=== PATIENT | female | born 1970 | race Caucasian/White ===

== ENCOUNTER 2020-06-27 17:51 | Emergency (ER) | payer BC, OTHER ==
[~2020-06-27 17:51] MED LIST: Iopamidol-370 76% 500 ML 1 ML ONE
[2020-06-27 18:43] LABS: #Lymphocytes 1.1 thou/uL (1.20-3.40); #Monocytes 0.2 thou/uL (0.11-0.59); #Neutrophils 3.7 thou/uL (1.40-6.50); %Basophils 0.3 % (0.0-1.0); %Eosinophils 0.7 % (0.0-10.0); %Lymphocytes 21.5 % (21.0-51.0); %Monocytes 4.5 % (0.0-10.0); Hemoglobin 13.2 g/dL (12.0-16.0); Mean Corpuscular HGB CONC 34.3 g/dL (32.0-36.0); Mean Corpuscular Hemoglobin 30.4 pg (27.0-31.0); Mean Corpuscular Volume 88.9 fL (78.0-98.0); Mean Platelet Volume 8.3 fL (7.4-10.4); Platelet Count 158 thou/uL (130-400); RBC Distribution Width 11.6 % (11.5-14.5); Red Blood Cell (RBC) Count 4.34 mill/uL (4.20-5.40); White Blood Cell (WBC) Count 5.1 thou/uL (4.8-10.8)
--- NOTE | 2020-06-27 19:03 | RAD ---
XR Chest 1 View Portable History: Chest pain Comparison: None. Findings: Abnormal nodular density projects over the right lower lobe. Remainder the lungs are relati vely clear. Lung hyperinflation. No confluent airspace consolidation, pneumothorax or effusion. No acute osseous abnormality. Impression: Abnormal nodular density projecting over the right lower lobe for which nonemergent evalu ation with chest CT recommended.
[2020-06-27 19:07] LABS: ALT (SGPT) 25 U/L (8-55); AST (SGOT) 19 U/L (5-34); Albumin 3.9 g/dL (3.5-5.0); Alkaline Phosphatase 85 U/L (40-110); Anion Gap 13 mmol/L (10-20); BUN (Urea Nitrogen) 11 mg/dL (9.8-20.1); Bilirubin, Total 0.7 mg/dL (0.2-1.2); Calc. Creatinine Clearance 0 mL/min (70-130); Calcium 8.5 mg/dL (7.8-10.44); Carbon Dioxide 24 mmol/L (22-29); Chloride 105 mmol/L (98-107); Estimated GFR-MDRD Greater than 90; Globulin 2.7 g/dL (2.4-3.5); Glucose 99 mg/dL (70-105); Potassium 3.6 mmol/L (3.5-5.1); Protein, Total 6.6 g/dL (6.0-8.3); Sodium 138 mmol/L (136-145)
[2020-06-27] MEDS ORDERED: Ondansetron ODT 4 MG TAB ONE (19:16)
[2020-06-27] MEDS ORDERED: Ondansetron PF 4 MG/2 ML Vial ONE (20:32)
--- NOTE | 2020-06-27 21:05 | CT ---
CTA Angio Chest W WO Con History: Covid pneumonia Comparison: Radiograph same day Findings: CT angiogram of the chest performed after the intravenous administration of contrast. 3-D r endering provided. No proximal segmental pulmonary arterial filling defect. Aortic size is normal. Spleen appears be enlarged. No significant pericardial effusion. Peripheral airspace opacities in the lung bases and to a lesser extent the upper lobes. No pneumothor ax. No effusion. Sternum and manubrium are intact. Thoracic spine is intact. Impression: Commonly reported imaging findings of COVID-19 pneumonia. No pulmonary embolism.
[2020-06-27] MEDS ORDERED: Dexamethasone 10 MG/ML VIAL ONE (21:50)
[2020-06-27] MEDS ORDERED: Aspirin 325 MG TAB ONE (21:53)
== END 2020-06-27 22:03 | disposition home or self-care (01) ==
LOC: ERS 17:51
DX: U07.1 COVID-19 (principal); J12.89 Other viral pneumonia; E86.0 Dehydration; R11.2 Nausea with vomiting, unspecified
CPT/HCPCS: 36415; 71045; 71275; 80053; 83605; 85025; 96374; 96375; J1100; J2405; Q0162; Q9967